=== PATIENT | female | born 1940 | race Caucasian/White ===

== ENCOUNTER 2018-01-28 14:29 | Observation (INO) ==
--- NOTE | 2018-01-28 14:46 | Emergency Department Report ---
Cardiac General HPI - General Chief Complaint: Arrhythmia/Palpitations Stated Complaint: racing heart,palpitation Time Seen by Provider: 01/28/18 14:46 Source: patient Mode of arrival: ambulatory Limitations: no limitations - History of Present Illness HPI narrative: Patient is a 77-year-old female, dialysis patient. Patient presents the ER for evaluation of rapid heart rate. Patient at dialysis yesterday developed a rapid heart rate, she says this is not uncommon for her, however it did not go away. Patient with a known history of atrial fibrillation not normally daily and atrial fibrillation. Patient does see Dr. Tsai for cardiology, today decided present to the ER for evaluation patient's heart rate irregularly irregular - Related Data Home Medications Medication Instructions Recorded Confirmed irbesartan 75 mg tablet 75 mg PO DAILY 90 Days #90 tab 10/19/17 02/17/18 Apixaban [Eliquis] 2.5 mg PO BID 01/28/18 02/17/18 Cholecalciferol (Vitamin D3) 1,000 unit PO DAILY 01/28/18 02/17/18 [Vitamin D3] Multivit/Iron/FA/K/Herb No.244 1 each PO DAILY 01/28/18 02/17/18 [Alive Women's Energy Mv Tablet] Sevelamer Carbonate [Renvela] 800 mg PO HS 01/28/18 02/17/18 Previous Rx's Medication Instructions Recorded Carvedilol [Coreg] 37.5 mg PO BIDWM #45 tab 01/29/18 Allergies Allergy/AdvReac Type Severity Reaction Status Date / Time iodine Allergy Unknown Verified 01/28/18 15:06 Review of Systems Constitutional: Reports: weakness. Denies: fever, chills Eyes: Denies: eye pain, eye discharge, vision change ENT: Denies: ear pain, throat pain, dental pain Cardiovascular: Reports: palpitations, dyspnea on exertion. Denies: chest pain Respiratory: Denies: cough, dyspnea, wheezes Gastrointestinal: Denies: abdominal pain, nausea, vomiting Genitourinary: Denies: dysuria, frequency Musculoskeletal: Denies: back pain Integumentary: Denies: erythema, lesions, pruritus Neurological: Reports: weakness. Denies: headache Endocrine: Reports: fatigue. Denies: heat or cold intolerance Hematological/Lymphatic: Denies: easy bleeding Allergic/Immunologic: Denies: facial swelling [facility] Medical History (Last Updated 10/19/17 @ 11:20 by Emily Rinaldi [facility]) Seasonal allergies (Chronic Medical) HTN (hypertension) (Chronic Medical) Aortic aneurysm (Chronic Medical) 2009 Surgical History: *Cyst removal. *Aortic repair - Social History Smoking status: Former smoker Substance use type: does not use Alcohol intake frequency: holidays/special occasions only Physical Exam - Limitations Limitations: no limitations - General General appearance: alert, in no apparent distress - Head Head exam: normocephalic, normal inspection - Eye Eye exam: Present: PERRL, EOMI - ENT ENT exam: Present: normal oropharynx, mucous membranes moist, TM's normal bilaterally - Neck Neck exam: Present: trachea midline. Absent: tenderness - Chest Chest inspection: Present: symmetric chest wall rise. Absent: tenderness - Respiratory Respiratory exam: Present: normal lung sounds bilaterally. Absent: respiratory distress, wheezes, stridor - Cardiovascular Cardiovascular exam: Present: tachycardia, irregular rhythm, normal heart sounds - Abdominal Exam Abdominal exam: Present: soft, normal bowel sounds. Absent: distention, tenderness - Back Exam Back exam: Present: full ROM. Absent: tenderness, CVA tenderness (R), CVA tenderness (L), muscle spasm - Skin Skin exam: Present: warm, dry - Neurological Exam Neurological exam: Present: alert, oriented X3 - Psychiatric Psychiatric exam: Present: normal affect, normal mood Course Vital Signs Temperature 97.4 F 01/28/18 14:42 Pulse Rate 124 H 01/28/18 14:42 Respiratory Rate 15 01/28/18 14:42 Pulse Oximetry 99 01/28/18 14:42 Temperature 98.0 F 01/29/18 04:15 Pulse Rate 71 01/29/18 12:16 Respiratory Rate 27 H 01/29/18 12:16 Blood Pressure 80/46 01/29/18 12:16 Pulse Oximetry 97 01/29/18 12:16 Cardiac General - MDM Narrative Medical decision making narrative: Discuss case with Vivian Awan from Dr. Leong's group, they will admit here she is aware patient is a dialysis patient - Medical Records Attestation: I reviewed the patient's medical records. - Lab Data Attestation: I reviewed the patient's lab results. Result diagrams: 01/28/18 15:01 01/28/18 15:01 Lab Results 01/28/18 01/28/18 01/28/18 Range/Units 15:01 15:01 15:01 WBC 3.8 L (4.5-11.0) T/MM3 RBC 4.16 (4.00-5.20) M/MM3 Hgb 12.8 (12-16) GM/DL Hct 40.3 (36-46) % MCV 96.9 (80-100) UM3 MCH 30.8 (26-34) UUG MCHC 31.8 (31-37) GM/DL RDW Std Deviation 56.6 H (36.9-50.2) FL Plt Count 112 L (130-400) T/MM3 MPV 10.6 (9.4-12.4) UM3 Immature Gran % (Auto) 0.0 (0.0-0.5) % Neut % (Auto) 51.4 (33-66) % Lymph % (Auto) 33.5 (23-45) % [place] % (Auto) 9.8 H (0-9.0) % Eos % (Auto) 3.2 (0-4) % Baso % (Auto) 2.1 H (0-2) % Neut # (Auto) 1.9 (1.8-7.7) T/MM3 Lymph # (Auto) 1.3 (1-4.8) T/MM3 Rosebud # (Auto) 0.4 (0-0.8) T/MM3 Eos # (Auto) 0.1 (0-0.5) T/MM3 Baso # (Auto) 0.1 (0-0.2) T/MM3 Abs Immat Gran (auto) 0.00 (0.00-0.03) T/MM3 INR 1.13 (0.92-1.18) Turbidity < 20 (0-20) Sodium 142 (136-146) MEQ/L Potassium 3.6 (3.6-5) MEQ/L Chloride 98 (98-107) MEQ/L Carbon Dioxide 30 (22-30) MEQ/L Anion Gap 14 (5-15) meq/L BUN 11.0 (7-17) MG/DL Creatinine 3.8 H (0.7-1.2) mg/dL GFR Calculation 12 BUN/Creatinine Ratio 3 L (6-26) RATIO Glucose 123 H (65-110) MG/DL Calculated Osmolality 273 (261-280) MOSM/KG Calcium 9.6 (8.4-10.2) MG/DL Magnesium 2.1 (1.6-2.3) MG/DL Total Bilirubin 0.80 (0.20-1.30) MG/DL Icterus Index < 2 (0-7) AST 20 (14-36) U/L ALT 9 (1-35) U/L Alkaline Phosphatase 71 (38-126) U/L Troponin I 0.014 (0-0.12) ng/ml Total Protein 7.7 (6.3-8.2) g/dL Albumin 4.8 (3.5-5.0) g/dL Globulin 2.9 (2.4-3.6) G/DL Albumin/Globulin Ratio 1.7 (1.1-2.2) RATIO TSH 3.47 (0.47-4.68) mIU/L Specimen Hemolysis < 15 (0-25) - Radiology Data Attestation: I reviewed the patient's radiology results. Chest x-ray: No acute cardiopulmonary findings - EKG Data EKG #1 EKG attestation: Yes: I reviewed and interpreted this EKG. Rate: tachycardia Rhythm: A.Fib [place]/QRS: normal Interpretation: no acute changes Disposition Clinical Impression: Atrial fibrillation with RVR Disposition: To [facility] Acute Care Condition: Stable - Seen By: physician
[2018-01-28] MEDS ORDERED: SALINE FLUSH 10ml SYRINGE IVF PRN (14:53)
--- OUTSIDE RECORDS SUMMARY | 2018-01-28 14:56 | External Medical Summary | Continuity of Care Document ---
:1940 Author Organization [facility] Allergies Active Description Code Type Severity Reaction Onset Reported/ Identified Relationship Clinical to Patient Status Yes Iodinated Iodin Drug Mild RASH 08/12/2014 Contrast ated Aller Media - IV Contr gy Dye ast Media - IV Dye Yes Iodinated Iodin Drug Mild RASH 08/12/2014 Contrast- ated Aller Oral and IV Contr gy Dye ast- Oral and IV Dye Yes iodine Aller Unknown N/A 10/19/2017 gy Medications Medication Packaging Start Date Stop Date Route Dosage Sig 05/16/2011 PO 25 mg Hydrochlorothiazide DAILY Simvastatin 05/16/2011 PO 20 mg HS Niaspan 05/16/2011 PO 500 mg HS Amlodipine 05/16/2011 PO 10 mg Besylate DAILY Coreg 05/16/2011 PO 12.5 mg BID Cozaar 05/16/2011 PO 100 mg DAILY Lopressor 10/19/2017 PO 25 mg BID Irbesartan 10/19/2017 PO 75 mg DAILY Problems Date Dx Coded Attending Type Code Diagnosis Diagnosed By 10/19/2017 Irene Mon Z48.02 Encounter for Irene Mon [employer] removal of [employer] sutures Procedures Code Description Performed By Performed On DIALYSIS Leydi DE PAZ, 08/12/2014 39.27 ARTERIOVENOSTOM [place] <section xmlns="urn:hl7-org:v3" xmlns:xsi="http://www.w3.org/ 2001/XMLSchema-instance"> <templateId root=" 2.16.840.1.651372.10.20.22.2.3" /> <templateId root=" 2.16.840.1.030018.10.20.22.2.3.1" /> <code codeSystemName=" LOINC" codeSystem="2.16.840.1.367833.6.1" code="69257-4&quot ; displayName="Results" /> <title>Results</title> &lt ;text> <table> <thead> <tr> <th& gt;Test</th> <th>Result</th> <th>Range </th> </tr> </thead> <tbody> &lt ;tr> <th colspan="10">CBC - 10/02/17 08:31</th&gt ; </tr> <tr> <td>MEAN CELL HGB</td> <td>31.8 pg</td> <td>27.0-33.0</td> </tr> <tr> <td>MEAN CELL HGB CONCENTRATION</td> <td>32.2 g/dL</td> <td >32.0-37.0</td> </tr> <tr> <td&gt ;MEAN CELL VOLUME</td> <td>98.7 fl</td> < td>80.0-100.0</td> </tr> <tr> <td >MEAN PLATELET VOLUME</td> <td>10.4 fl</td> <td>8.5-10.9</td> </tr> <tr> <td>RED BLOOD CELL</td> <td>3.05 m/cumm</td> <td>4.00-6.00</td> </tr> <tr> &lt ;td>RED CELL DISTRIBUTION WIDTH</td> <td>15.2 %& lt;/td> <td>11.0-15.6</td> </tr> &lt ;tr> <td>WHITE BLOOD CELL</td> <td>3.2 k/cumm< /td> <td>5.0-10.0</td> </tr> <tr& gt; <td>HEMOGLOBIN</td> <td>9.7 gm/dL</td> <td>12.0-16.0</td> </tr> <tr> <td>HEMATOCRIT</td> <td>30.1 %</td> <td>37.0-47.0</td> </tr> <tr> <td>NRBC %</td> <td>0.0 /100 WBC</td> <td>0.0-0.0</td> </tr> <tr> <td>PLATELET COUNT</td> <td>122 k/cumm</td> <td>150-400</td> </tr> <tr> &lt ;td>IMMATURE PLATELET FRACTION</td> <td>2.5 %&lt ;/td> <td>1.1-6.1</td> </tr> <tr> <th colspan="10">METABOLIC PANEL, BASIC - 10/02/17 08:31& lt;/th> </tr> <tr> <td>POTASSIUM</td& gt; <td>4.0 mmol/L</td> <td>3.5-5.3</td& gt; </tr> <tr> <td>EST GFR (MDRD)</ td> <td>< 10 mL/min</td> <td>> 59</td> </tr> <tr> <td>ANION GAP& lt;/td> <td>11 mmol/L</td> <td>5-15</ td> </tr> <tr> <td>EST CrCl (CG)< /td> <td>< 10 mL/min</td> <td>&amp ;gt; 59</td> </tr> <tr> <td> GLUCOSE</td> <td>81 mg/dL</td> <td>70- 99</td> </tr> <tr> <td>CALCIUM</td> <td>9.1 mg/dL</td> <td>8.5-10.1</td> </tr> <tr> <td>BLOOD UREA NITROGEN< /td> <td>16 mg/dL</td> <td>7-20</td> </tr> <tr> <td>CREATININE</td> <td>5.0 mg/dL</td> <td>0.6-1.0</td> </tr> <tr> <td>SODIUM</td> <td> 137 mmol/L</td> <td>135-148</td> </tr> <tr> <td>CHLORIDE</td> <td>100 mmol/L</td> <td>98-110</td> </tr> <tr> <td>CARBON DIOXIDE</td> <td>26 mmol/L</td> <td>21-32</td> </tr> <tr> <th colspan="10">MRSA SURVEILLANCE SCREEN - 10/02/17 08:49</th> </tr> <tr> <td& gt;Microbiology</td> <td> </td> <td /> & lt;/tr> </tbody> </table> </text> <entry> <organizer moodCode="EVN" classCode="BATTERY"> <templateId root="2.16.840.1.089779.10.20.22.4.1" /> < id nullFlavor="NA" /> <code codeSystem="local" code="CBC" displayName="CBC" /> <statusCode code= "completed" /> <component> <observation moodCode=& quot;EVN" classCode="OBS"> <templateId root=" 2.16.840.1.107341.10.20.22.4.2" /> <id nullFlavor="NA& quot; /> <code codeSystem="local" code="MCH" displayName="MEAN CELL HGB" /> <statusCode code=" completed" /> <effectiveTime value="763510675432" /> <value unit="pg" xsi:type="PQ" value=&quot ;31.8" /> <referenceRange> < observationRange><text>27.0-33.0</text> </ observationRange> </referenceRange> </observation&gt ; </component> <component> <observation moodCode ="EVN" classCode="OBS"> <templateId root=& quot;2.16.840.1.778557.10.20.22.4.2" /> <id nullFlavor=&quot ;NA" /> <code codeSystem="local" code="MCHC& quot; displayName="MEAN CELL HGB CONCENTRATION"/> < statusCode code="completed" /> <effectiveTime value=& quot;695337953682" /> <value unit="g/dL" xsi:type= "PQ" value="32.2" /> <referenceRange> <observationRange> <text>32.0-37.0</text&gt ; </observationRange> </referenceRange> & lt;/observation> </component> <component> < observationmoodCode="EVN" classCode="OBS"> < templateId root="2.16.840.1.970528.10.20.22.4.2" /> < id nullFlavor="NA" /> <code codeSystem="local&quot ; code="MCV" displayName="MEAN CELL VOLUME" /> < statusCode code="completed" /> <effectiveTime value=& quot;464074188141" /> <value unit="fl" xsi:type=& quot;PQ" value="98.7" /> <referenceRange> <observationRange> <text>80.0-100.0</text&gt ; </observationRange> </referenceRange> & lt;/observation> </component> <component> < observation moodCode="EVN" classCode="OBS"> < templateId root="2.16.840.1.132936.10.20.22.4.2" /> < id nullFlavor="NA" /> <code codeSystem="local&quot ; code="MPVT" displayName="MEAN PLATELET VOLUME" /> <statusCode code="completed" /> <effectiveTime value="008935756352" /> <value unit="fl" xsi: type="PQ" value="10.4" /> <referenceRange> <observationRange> <text>8.5-10.9</text> </observationRange> </referenceRange> &lt ;/observation> </component> <component> < observation moodCode="EVN"classCode="OBS"> < templateId root="2.16.840.1.528205.10.20.22.4.2" /> < id nullFlavor="NA" /> <code codeSystem="local&quot ; code="RBC" displayName="RED BLOOD CELL" /> &lt ;statusCode code="completed" /> <effectiveTime value=& quot;293263501406" /> <value unit="m/cumm" xsi: type="PQ" value="3.05" /> < interpretationCode codeSystem="local" code="*" /> <referenceRange> <observationRange> <text >4.00-6.00</text> </observationRange> </ referenceRange> </observation> </component> < component> <observation moodCode="EVN" classCode=" OBS"> <templateId root="2.16.840.1.854120.10.20.22.4.2& quot; /> <id nullFlavor="NA" /> <code codeSystem="local" code="RDW" displayName="RED CELL DISTRIBUTION WIDTH" /> <statusCode code="completed&quot ; /> <effectiveTime value="357231393818" /> <value unit="%" xsi:type="PQ" value="15.2& quot; /> <referenceRange> <observationRange> <text>11.0-15.6</text> </ observationRange> </referenceRange> </observation&gt ; </component> <component> <observation moodCode ="EVN" classCode="OBS"> <templateId root=& quot;2.16.840.1.721843.10.20.22.4.2" /> <id nullFlavor=&quot ;NA" /> <code codeSystem="local" code="WBC& quot; displayName="WHITE BLOOD CELL" /> <statusCode code="completed" /> <effectiveTime value=" 655950094823" /> <value unit="k/cumm" xsi:type=& quot;PQ" value="3.2" /> <interpretationCode codeSystem="local" code="*" /> < referenceRange> <observationRange> <text> 5.0-10.0</text> </observationRange> </referenceRange& gt; </observation> </component> <component> <observation moodCode="EVN" classCode="OBS"> <templateId root="2.16.840.1.448947.10.20.22.4.2" /> <id nullFlavor="NA" /> <code codeSystem=" local" code="HGBT" displayName="HEMOGLOBIN" /> <statusCode code="completed" /> <effectiveTime value="161177373582" /> <value unit="gm/dL" xsi:type="PQ" value="9.7" /> < interpretationCode codeSystem="local" code="*" /> <referenceRange> <observationRange> < text>12.0-16.0</text> </observationRange> &lt ;/referenceRange></observation> </component> < component> <observation moodCode="EVN" classCode=" OBS"> <templateId root="2.16.840.1.778155.10.20.22.4.2& quot; /> <id nullFlavor="NA" /> <code codeSystem="local" code="HCTT" displayName="HEMATOCRIT& quot; /> <statusCode code="completed" /> & lt;effectiveTime value="426989448416" /> <value unit=&quot ;%" xsi:type="PQ" value="30.1" /> < interpretationCode codeSystem="local" code="*" /> <referenceRange> <observationRange> < text>37.0-47.0</text> </observationRange> </ referenceRange> </observation> </component> < component> <observation moodCode="EVN" classCode=" OBS"> <templateId root="2.16.840.1.272581.10.20.22.4.2& quot; /> <id nullFlavor="NA" /> <code codeSystem="local" code="NRBC%" displayName=" NRBC %" /> <statusCode code="completed" /& gt; <effectiveTime value="335690674556" /> &lt ;value unit="/100WBC" xsi:type="PQ" value="0.0" /& gt; <referenceRange> <observationRange> <text>0.0-0.0</text> </observationRange> </ referenceRange> </observation> </component> < component> <observation moodCode="EVN" classCode=" OBS"> <templateId root="2.16.840.1.303720.10.20.22.4.2& quot; /> <id nullFlavor="NA" /> <code codeSystem="local" code="PLTT" displayName="PLATELET COUNT" /> <statusCode code="completed"/> <effectiveTime value="219711862093" /> <value unit="k/cumm" xsi:type="PQ" value="122" /> <interpretationCode codeSystem="local" code="*" /& gt; <referenceRange> <observationRange> <text>150-400</text> </observationRange> </referenceRange> </observation> </component> <component> <observation moodCode="EVN" classCode ="OBS"> <templateId root=" 2.16.840.1.120874.10.20.22.4.2" /> <id nullFlavor="NA& quot; /> <code codeSystem="local" code="IPFT&quot ; displayName="IMMATURE PLATELET FRACTION" /> < statusCode code="completed" /> <effectiveTime value=& quot;920931761479" /> <value unit="%" xsi: type="PQ" value="2.5" /> <referenceRange> <observationRange> <text>1.1-6.1</text& gt; </observationRange> </referenceRange> & lt;/observation> </component> </organizer> </entry&gt ; <entry> <organizer moodCode="EVN" classCode=" BATTERY"> <templateId root="2.16.840.1.467565.10.20.22.4.1& quot; /> <id nullFlavor="NA" /> <code codeSystem ="local" code="METAB" displayName="METABOLIC PANEL, BASIC" /> <statusCode code="completed" /> < component> <observation moodCode="EVN" classCode=" OBS"> <templateId root="2.16.840.1.111123.10..22.4.2&quot ; /> <id nullFlavor="NA" /> <code codeSystem="local" code="K" displayName="POTASSIUM&quot ; /> <statusCode code="completed" /> < effectiveTime value="618417193484" /> <value unit=&quot ;mmol/L" xsi:type="PQ" value="4.0" /> < referenceRange> <observationRange> <text> 3.5-5.3</text> </observationRange> </ referenceRange> </observation> </component> < component> <observation moodCode="EVN" classCode="OBS& quot;> <templateId root="2.16.840.1.139009.10..22.4.2&quot ; /> <id nullFlavor="NA" /> <code codeSystem="local" code="eGFR" displayName="EST GFR ( MDRD)" /> <statusCode code="completed" /> <effectiveTime value="615333745314" /> <value unit="mL/min" xsi:type="PQ" value="< 10" /& gt; <interpretationCode codeSystem="local" code="*& quot; /> <referenceRange> <observationRange> <text>> 59</text> </ observationRange> </referenceRange> </observation&gt ; </component> <component> <observation moodCode ="EVN" classCode="OBS"> <templateId root=& quot;2.16.840.1.359757.10.20.22.4.2" /> <id nullFlavor=&quot ;NA" /> <code codeSystem="local" code="GAP& quot; displayName="ANION GAP" /> <statusCode code=&quot ;completed" /> <effectiveTime value="881977546701&quot ; /> <value unit="mmol/L" xsi:type="PQ" value ="11" /> <referenceRange> < observationRange> <text>5-15</text> </ observationRange> </referenceRange> </observation&gt ; </component> <component> <observation moodCode ="EVN" classCode="OBS"> <templateId root=& quot;2.16.840.1.155117.10.20.22.4.2" /> <id nullFlavor=&quot ;NA" /> <code codeSystem="local" code="eCrCl& quot; displayName="EST CrCl (CG)" /> <statusCode code=& quot;completed" /> <effectiveTime value="968666335614& quot; /> <value unit="mL/min" xsi:type="PQ" value="< 10" /><interpretationCode codeSystem="local " code="*" /> <referenceRange> < observationRange> <text>> 59</text> </ observationRange> </referenceRange> </observation&gt ; </component> <component> <observation moodCode ="EVN" classCode="OBS"> <templateId root=& quot;2.16.840.1.841720.10.20.22.4.2" /><id nullFlavor="NA" /> <code codeSystem="local" code="GLU" displayName="GLUCOSE" /> <statusCode code=" completed" /> <effectiveTime value="176715272794" / > <value unit="mg/dL" xsi:type="PQ" value=& quot;81" /> <referenceRange> < observationRange> <text>70-99</text> < /observationRange> </referenceRange> </observation& gt; </component> <component> <observation moodCode="EVN" classCode="OBS"> <templateId root="2.16.840.1.601351.10.20.22.4.2" /> <id nullFlavor ="NA" /> <code codeSystem="local" code=" CA" displayName="CALCIUM" /> <statusCode code=& quot;completed" /> <effectiveTime value="550806030291& quot; /> <value unit="mg/dL" xsi:type="PQ" value="9.1" /> <referenceRange> < observationRange> <text>8.5-10.1</text> </ observationRange> </referenceRange> </observation&gt ; </component> <component> <observation moodCode ="EVN" classCode="OBS"> <templateId root=& quot;2.16.840.1.786758.10.20.22.4.2" /> <id nullFlavor=&quot ;NA" /> <code codeSystem="local" code="BUN& quot; displayName="BLOOD UREA NITROGEN" /> <statusCode code="completed" /> <effectiveTime value=" 158436504653" /> <value unit="mg/dL" xsi:type=& quot;PQ" value="16" /> <referenceRange> <observationRange> <text>7-20</text> </observationRange> </referenceRange> </ observation> </component> <component> < observation moodCode="EVN" classCode="OBS"> < templateId root="2.16.840.1.305491.10.20.22.4.2" /> < id nullFlavor="NA" /> <code codeSystem="local&quot ; code="CREAT" displayName="CREATININE" /> < statusCode code="completed" /> <effectiveTime value=& quot;922036642242" /> <value unit="mg/dL" xsi:type ="PQ" value="5.0" /> <interpretationCode codeSystem ="local" code="*" /> <referenceRange> <observationRange> <text>0.6-1.0</text> </observationRange> </referenceRange> </ observation> </component> <component> < observation moodCode="EVN" classCode="OBS"> < templateId root="2.16.840.1.077322.10.20.22.4.2" /><id nullFlavor="NA" /> <code codeSystem="local" code="NA" displayName="SODIUM" /> < statusCode code="completed" /> <effectiveTime value=" 534730555506" /> <value unit="mmol/L" xsi:type=& quot;PQ" value="137" /> <referenceRange> <observationRange> <text>135-148</text> </observationRange> </referenceRange> </ observation> </component> <component> < observation moodCode="EVN" classCode="OBS"> < templateId root="2.16.840.1.021813.10.20.22.4.2" /> < id nullFlavor="NA" /> <code codeSystem="local&quot ; code="CL" displayName="CHLORIDE" /> < statusCode code="completed" /> <effectiveTime value=& quot;332437520649" /> <value unit="mmol/L" xsi: type="PQ" value="100" /> <referenceRange> <observationRange> <text>98-110</text&gt ; </observationRange> </referenceRange> & lt;/observation> </component> <component> < observation moodCode="EVN" classCode="OBS"> < templateId root="2.16.840.1.923797.10.20.22.4.2" /> < id nullFlavor="NA" /> <code codeSystem="local&quot ; code="CO2" displayName="CARBON DIOXIDE" /> &lt ;statusCode code="completed" /> <effectiveTime value=& quot;141091074179" /> <value unit="mmol/L" xsi: type="PQ" value="26" /> <referenceRange> <observationRange> <text>21-32</text> </observationRange> </referenceRange> </ observation> </component> </organizer> </entry> & lt;entry> <organizer moodCode="EVN" classCode="BATTERY& quot;> <templateId root="2.16.840.1.043159.10.20.22.4.1" /& gt; <id nullFlavor="NA" /> <code codeSystem=" local" code="MRSAS" displayName="MRSA SURVEILLANCE SCREEN& quot; /> <statusCode code="completed" /> < component> <observation moodCode="EVN" classCode=" OBS"> <templateId root="2.16.840.1.364500.10.20.22.4.2& quot; /> <id nullFlavor="NA" /> <code codeSystem="local" code="MB" displayName="Microbiology& quot; /> <statusCode code="completed" /> < effectiveTime value="672125120661" /> <value xsi:type=& quot;ST" value="<pre><b>MRSA SURVEILLANCE SCREEN</b&gt ; See BelowMRSA SURVEILLANCE SCREEN(F) Kwesi Date/Time: 10/02/2017 08:49 Danni Date/Time: 10/03/2017 07:33SOURCE: ANTERIOR NARESSPEC DESC: [facility] [place] [address]</pre>" /> < referenceRange> <observationRange> <text /& gt; </observationRange> </referenceRange> </observation> </component> </organizer> </entry ></section> Encounters ACCT Visit Discharge Status Pt. Type Provider Facility Loc./Unit Complaint No. Date/Time W0004 10/02/2017 10/02/2017 DIS Outpatient Leydi TAYLORA [id number] 07:50:00 11:30:00 , [facility] W0004 08/12/2014 08/12/2014 DIS Outpatient Leydi HuberOPRA [id number] 09:03:00 14:40:00 , Medical 43 [facility] V0000 10/19/2017 10/19/2017 DIS Outpatient Yaa, Mauro Staple [id number] 11:04:00 11:39:00 [facility] Removal [address] [employer] [id number] 01/28/2018 Document [id number] 14:31:00 Registration 64
[2018-01-28] MEDS ORDERED: DiltiaZEM 25 MG/5 ML INJECTION IVP ONE (15:24)
[2018-01-28 15:34] VITALS: BMI 24.7
[2018-01-28] MEDS ORDERED: DiltiaZEM Drip 125 MG in NS 125 ML IV SCH (15:45)
[2018-01-28] MEDS ORDERED: FUROSEMIDE 20 MG/2 ML INJECTION IVP ONE (15:48)
--- NOTE | 2018-01-28 16:18 | XRay Report ---
Indication: afib PROCEDURE: XR chest 1V: Encounter: Initial Comparison: Chest x-ray dated February 24, [address] angiogram of the aorta dated October 24, 2015 Findings: Lungs are mildly hyperinflated with findings of emphysema. No lobar pneumonia, pleural effusion or pneumothorax. Cardiac silhouette is mildly enlarged, but unchanged. Aneurysmal dilatation of the descending thoracic aorta is noted and is better evaluated on the prior CT angiogram. Pulmonary vascularity is normal. 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 Impression: No focal pneumonia or congestive failure. .
[2018-01-28 20:33] VITALS: TEMP 98
[2018-01-28] MEDS: APIXABAN 2.5 MG TABLET PO SCH (20:46)
[2018-01-28] MEDS ORDERED: SEVELAMER CARBONATE 800 MG PO SCH (21:00)
[2018-01-28] MEDS ORDERED: CARVEDILOL 25 MG TABLET PO SCH (21:00)
[2018-01-29] MEDS ORDERED: CARVEDILOL 25 MG TABLET PO SCH ×2 (08:00→17:30)
[2018-01-29] MEDS ORDERED: SALINE FLUSH 10ml SYRINGE ONE (08:48)
[2018-01-29] MEDS ORDERED: IRBESARTAN 150 MG TABLET PO SCH (09:00)
[2018-01-29] MEDS ORDERED: MULTI-VITAMIN + MINERAL TABLET PO SCH (09:00)
--- NOTE | 2018-01-29 10:07 | Cardiology History & Physical ---
History of Present Illness Chief complaint: palpitations HPI: Haley is a 77 year old female who is known to Dr. Tsai's practice with a history of A Fib, HTN, nonrheumatic tricuspid insufficiency, ruptured and repaired abdominal aortic aneurysm, HLD, CKD on dialysis, and nicotine dependence who was at dialysis yesterday and reported feeling palpitations and her HR was noted to be in the upper 140s and [place] [facility] [place] for possible ARLINE/ DCCV. Review of Systems - Constitutional Constitutional: Absent: chills, fatigue, fever(s) - EENMT Eyes: Absent: change in vision Balance: Absent: vertigo Mouth/Throat: Absent: sore throat - Cardiovascular Cardiovascular: Present: palpitations, dyspnea on exertion, edema, heart murmur. Absent: chest pain, syncope, orthopnea Rhythm: Present: abnormal rhythm Vascular: Present: pedal edema - Respiratory Respiratory: Present: cough, dyspnea on exertion - Gastrointestinal Gastrointestinal: Absent: abdominal pain, diarrhea, nausea, vomiting - Genitourinary Genitourinary: Absent: dysuria - Integumentary/Breasts Integumentary: Absent: rash - Neurological Neurological: Absent: dizziness - Endocrine Endocrine: Present: palpitations PFSH Patient Stated Medical History Cataracts Yes Cardiac Arrhythmia Yes Hypertension Yes Other Cardiology Yes: aortic aneurysm Post Menopausal Yes Clinic Medical History (Last Updated 10/19/17 @ 11:20 by Emily Rinaldi Do) Seasonal allergies (Chronic Medical) HTN (hypertension) (Chronic Medical) Aortic aneurysm (Chronic Medical) 2009 Surgical History: *Cyst removal. *Aortic aneurysm repair Family History: Mother - CAD - Social History Smoking status: Former smoker Substance use type: does not use Alcohol intake frequency: holidays/special occasions only Housing: house Household members: none Current occupational status: disabled Medications Home Medications Medication Instructions Recorded Confirmed Type irbesartan 75 mg tablet 75 mg PO DAILY 90 Days #90 tab 10/19/17 01/28/18 History Apixaban [Eliquis] 2.5 mg PO BID 01/28/18 01/28/18 History Cholecalciferol (Vitamin D3) 1,000 unit PO DAILY 01/28/18 01/28/18 History [Vitamin D3] Multivit/Iron/FA/K/Herb No.244 1 each PO DAILY 01/28/18 01/28/18 History [Alive Women's Energy Mv Tablet] Sevelamer Carbonate [Renvela] 800 mg PO HS 01/28/18 01/28/18 History Carvedilol [Coreg] 37.5 mg PO BIDWM #45 tab 01/29/18 Rx Allergies Allergy/AdvReac Type Severity Reaction Status Date / Time iodine Allergy Unknown Verified 01/28/18 15:06 Exam Vital signs: Temperature 98.0 F 01/29/18 04:15 Pulse Rate 77 01/29/18 05:45 Respiratory Rate 17 01/29/18 05:45 Blood Pressure 162/77 H 01/29/18 05:45 Pulse Oximetry 95 01/29/18 05:45 - Constitutional no acute distress, well nourished, cooperative - Routine HEENT Exam Head: Present: normocephalic ENT: Present: mucous membranes moist - Routine Neck Exam Absent: JVD, carotid bruit - Routine Chest/Breast/Axilla Exam Chest wall: Absent: tenderness - Routine Respiratory Exam Present: CTA bilaterally, diminished air movement (bases). Absent: dyspnea, rales, wheezes - Routine Cardiovascular Exam Present: murmur (II/), irregular rhythm - Routine Abdominal Exam Present: soft, non tender - Routine Extremities Exam Present: edema - Routine Skin Exam Present: intact, dry, warm - Routine Neurological Exam Present: alert, oriented X3 - Routine Psychiatric Exam Present: normal affect, normal thought process Results 01/28/18 15:01 01/28/18 15:01 Cardiac Enzymes 01/28/18 Range/Units 15:01 AST 20 (14-36) U/L Troponin I 0.014 (0-0.12) ng/ml CBC 01/28/18 Range/Units 15:01 WBC 3.8 L (4.5-11.0) T/MM3 RBC 4.16 (4.00-5.20) M/MM3 Hgb 12.8 (12-16) GM/DL Hct 40.3 (36-46) % Plt Count 112 L (130-400) T/MM3 Neut # (Auto) 1.9 (1.8-7.7) T/MM3 Lymph # (Auto) 1.3 (1-4.8) T/MM3 [place] # (Auto) 0.4 (0-0.8) T/MM3 Eos # (Auto) 0.1 (0-0.5) T/MM3 Baso # (Auto) 0.1 (0-0.2) T/MM3 Comprehensive Metabolic Panel 01/28/18 Range/Units 15:01 Sodium 142 (136-146) MEQ/L Potassium 3.6 (3.6-5) MEQ/L Chloride 98 (98-107) MEQ/L Carbon Dioxide 30 (22-30) MEQ/L BUN 11.0 (7-17) MG/DL Creatinine 3.8 H (0.7-1.2) mg/dL Glucose 123 H (65-110) MG/DL Calcium 9.6 (8.4-10.2) MG/DL AST 20 (14-36) U/L ALT 9 (1-35) U/L Alkaline Phosphatase 71 (38-126) U/L Total Protein 7.7 (6.3-8.2) g/dL Albumin 4.8 (3.5-5.0) g/dL Intake and Output 01/28/18 01/29/18 01/29/18 22:59 06:59 14:59 Intake Total 360 / 360 158.833 / 158.833 Balance 360 / 360 158.833 / 158.833 Intake: IV 38.833 / 38.833 DiltiaZEM Drip 125 mg In Ns 125 38.833 / 38.833 ml @ 5 mls/hr IV .Q24H [facility] Rx# :[id number] Oral 360 / 360 120 / 120 Other: # Voids 1 Weight 143 lb 15.39 oz - Imaging and Cardiology Imaging & Cardiology Narrative: = = = = = = = = = = = = = = = = = = = = = = = = = = = = = = = = = = = = = = = = = = = = = = = = = = = = = = = = = = = Date of Exam: 01/28/18 Ordering Provider: Vivian Awan APRN Type of Exam(s): XR chest 1V Reason for Exam(s): afib Indication: afib PROCEDURE: XR chest 1V: Encounter: Initial Comparison: Chest x-ray dated February 24, [address] angiogram of the aorta dated October 24, 2015 Findings: Lungs are mildly hyperinflated with findings of emphysema. No lobar pneumonia, pleural effusion or pneumothorax. Cardiac silhouette is mildly enlarged, but unchanged. Aneurysmal dilatation of the descending thoracic aorta is noted and is better evaluated on the prior CT angiogram. Pulmonary vascularity is normal. 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 Impression: No focal pneumonia or congestive failure. . 01/29/18 10:15 01/30/18 09:31 Date of Exam: 01/28/18 Type of Exam(s): US echo doppler complete DATE OF PROCEDURE 01/28/2018 PROCEDURE PERFORMED 2D echocardiography, M-mode assessment, full color spectral Doppler assessment. FINDINGS 1. LEFT VENTRICLE. Left ventricle appears normal in size. There is mild concentric left ventricular hypertrophy noted. Normal left ventricular systolic function noted. Estimated left ventricular ejection fraction is 50-55% . Due to presence of atrial fibrillation, study is not technically sufficient to allow accurate assessment of diastolic function. 2. RIGHT VENTRICLE. Right ventricle appears normal in size. Normal right ventricular wall thickness noted. Normal right ventricular systolic function noted. 3. RIGHT ATRIUM. Right atrium is mildly enlarged. 4. LEFT ATRIUM. Left atrium is moderately enlarged. 5. INTERATRIAL SEPTUM. Interatrial septum appears intact. No shunt by color flow noted. 6. MITRAL VALVE. There is moderate mitral annular calcification noted predominantly at the posterior annulus. There is no significant mitral stenosis noted. There is moderate central mitral regurgitation noted. 7. AORTIC VALVE. Aortic valve sclerosis is noted. There is moderate calcification of all three leaflets noted. No significant aortic regurgitation noted. No significant aortic stenosis noted. 8. TRICUSPID VALVE. Tricuspid valve appears normal in structure. There is moderate tricuspid regurgitation noted. 9. PULMONIC VALVE. Pulmonic valve poorly visualized on this study. Trivial pulmonic regurgitation noted. 10. EXTRACARDIAC. There is a trivial pericardial effusion noted without any hemodynamic compromise. 11. INFERIOR VENA CAVA. Inferior vena cava is dilated with poor respirophasic variations. 12. PULMONARY ARTERY. Estimated pulmonary artery systolic pressure is 50-55 mmHg. CONCLUSIONS 1. Normal left ventricular systolic function, estimated left ventricular ejection fraction is 55-60%. 2. Normal RV systolic function. 3. Moderate central mitral regurgitation noted. 4. Moderate tricuspid regurgitation noted. 5. Dilated IVC with poor respirophasic variation. 6. Estimated pulmonary artery systolic pressure is 50-55 mmHg. EKG interpretations - EKG EKG shows: atrial fibrillation (HR 120) - [place], pacemaker, normal Myocardial infarction: inferior W[place] (old age indeterminate) Hospital Course This is a general summary of the patient's hospital course. For more details refer to the complete medical record. Time spent with patient: 25 - 35 minutes Resuscitation Status: Full Code Assessment and Plan - Assessment and Plan (1) Atrial fibrillation with RVR Status: Acute New onset 01/15/18, started on Eliquis 2.5mg BID - Rate control with Cardizem bolus and drip. - Cardizem stopped at 0600, Rate controlled on Coreg - Patient does not want to have ARLINE/ DCCV today - Discharge to home with return on 02/17 for planned DCCV once she has been on anticoagulation longer - Followed by AAT with Flecainide - MAG and TSH WNL (2) CKD (chronic kidney disease) requiring chronic dialysis Status: Chronic Hemodialysis Fri-Fri-Fri, started 3 years ago (3) HTN (hypertension) Status: Chronic this condition is stable (4) Non-rheumatic tricuspid valve insufficiency Status: Chronic routine monitoring (5) Mixed hyperlipidemia Status: Chronic (6) Abdominal aortic aneurysm, ruptured Status: Chronic 2010 dissection with repair (7) Nicotine dependence, cigarettes, in remission Status: Chronic she remains abstinent from tobacco use
[2018-01-29] MEDS ORDERED: CARVEDILOL 12.5 MG TABLET PO ONE (10:15)
[2018-01-29] MEDS: APIXABAN 2.5 MG TABLET PO SCH (10:17)
--- NOTE | 2018-01-29 10:44 | Discharge Summary ---
Discharge Information Date of admission: 01/28/18 15:09 Anticipated date of discharge: 01/29/18 Attending Physician: Omar De La Cruz MD Primary care physician: Veronica Sneed MD Consults: 01/29/18 05:28 Case Management Consult [Case Management Consult] [CONS] Routine Reason For Exam: overnight oximetry - Discharge Diagnosis (1) Atrial fibrillation with RVR Status: Acute (2) CKD (chronic kidney disease) requiring chronic dialysis Status: Chronic (3) HTN (hypertension) Status: Chronic (4) Non-rheumatic tricuspid valve insufficiency Status: Chronic (5) Mixed hyperlipidemia Status: Chronic (6) Abdominal aortic aneurysm, ruptured Status: Chronic (7) Nicotine dependence, cigarettes, in remission Status: Chronic Atrial fibrillation - Laboratory Labs: 01/28/18 15:01 01/28/18 15:01 History of Present Illness HPI: Haley is a 77 year old female who is known to Dr. Tsai's practice with a history of A Fib, HTN, nonrheumatic tricuspid insufficiency, ruptured and repaired abdominal aortic aneurysm, HLD, CKD on dialysis, and nicotine dependence who was at dialysis yesterday and reported feeling palpitations and her HR was noted to be in the upper 140s and [place] [facility] [place] for possible [place]RLINE/ DCCV. Hospital Course This is a general summary of the patient's hospital course. For more details refer to the complete medical record. Hospital course: Atrial fibrillation with RVR Current visit: Yes Status: Acute - New onset 01/15/18, started on Eliquis 2.5mg BID - Rate control with Cardizem bolus and drip. - Cardizem stopped at 0600, Rate controlled on Coreg - Patient does not want to have ARLINE/ DCCV today - Discharge to home with return on 02/17 for planned DCCV once she has been on anticoagulation longer - Followed by AAT with Flecainide - MAG and TSH WNL CKD (chronic kidney disease) requiring chronic dialysis Current visit: Yes Status: Chronic - Hemodialysis Fri-Fri-Fri, started 3 years ago HTN (hypertension) Current visit: No Status: Chronic - this condition is stable Non-rheumatic tricuspid valve insufficiency Current visit: Yes Status: Chronic - routine monitoring Mixed hyperlipidemia Current visit: Yes Status: Chronic Abdominal aortic aneurysm, ruptured Current visit: Yes Status: Chronic - 2010 dissection with repair Nicotine dependence, cigarettes, in remission Current visit: Yes Status: Chronic - she remains abstinent from tobacco use Time spent with patient: 25 - 35 minutes Resuscitation Status: Full Code Exam Vital signs: Temperature 98.0 F 01/29/18 04:15 Pulse Rate 75 01/29/18 08:00 Respiratory Rate 17 01/29/18 05:45 Blood Pressure 162/77 H 01/29/18 05:45 Pulse Oximetry 95 01/29/18 05:45 - Constitutional no acute distress, well nourished, cooperative - Routine HEENT Exam Head: Present: normocephalic ENT: Present: mucous membranes moist - Routine Neck Exam Absent: JVD, carotid bruit - Routine Respiratory Exam Present: CTA bilaterally. Absent: dyspnea, rales, crackles - Routine Cardiovascular Exam Present: murmur (II/), irregular rhythm - Routine Abdominal Exam Present: soft, non tender - Routine Extremities Exam Present: edema - Routine Skin Exam Present: intact, dry, warm - Routine Neurological Exam Present: alert, oriented X3 - Routine Psychiatric Exam Present: normal affect, normal thought process Results 01/28/18 15:01 01/28/18 15:01 Cardiac Enzymes 01/28/18 Range/Units 15:01 AST 20 (14-36) U/L Troponin I 0.014 (0-0.12) ng/ml CBC 01/28/18 Range/Units 15:01 WBC 3.8 L (4.5-11.0) T/MM3 RBC 4.16 (4.00-5.20) M/MM3 Hgb 12.8 (12-16) GM/DL Hct 40.3 (36-46) % Plt Count 112 L (130-400) T/MM3 Neut # (Auto) 1.9 (1.8-7.7) T/MM3 Lymph # (Auto) 1.3 (1-4.8) T/MM3 [place]un # (Auto) 0.4 (0-0.8) T/MM3 Eos # (Auto) 0.1 (0-0.5) T/MM3 Baso # (Auto) 0.1 (0-0.2) T/MM3 Comprehensive Metabolic Panel 01/28/18 Range/Units 15:01 Sodium 142 (136-146) MEQ/L Potassium 3.6 (3.6-5) MEQ/L Chloride 98 (98-107) MEQ/L Carbon Dioxide 30 (22-30) MEQ/L BUN 11.0 (7-17) MG/DL Creatinine 3.8 H (0.7-1.2) mg/dL Glucose 123 H (65-110) MG/DL Calcium 9.6 (8.4-10.2) MG/DL AST 20 (14-36) U/L ALT 9 (1-35) U/L Alkaline Phosphatase 71 (38-126) U/L Total Protein 7.7 (6.3-8.2) g/dL Albumin 4.8 (3.5-5.0) g/dL Intake and Output 01/28/18 01/29/18 01/29/18 22:59 06:59 14:59 Intake Total 360 / 360 158.833 / 158.833 15 Balance 360 / 360 158.833 / 158.833 15 15 Intake: IV 38.833 / 38.833 15 15 DiltiaZEM Drip 125 mg In Ns 125 38.833 / 38.833 15 / 15 ml @ 5 mls/hr IV .Q24H [facility] Rx# :[id number] Oral 360 / 360 120 / 120 Other: # Voids 1 Weight 143 lb 15.39 oz - Imaging and Cardiology Imaging & Cardiology Narrative: Date of Exam: 01/28/18 Ordering Provider: Vivian Awan APRN Type of Exam(s): XR chest 1V Reason for Exam(s): afib Indication: afib PROCEDURE: XR chest 1V: Encounter: Initial Comparison: Chest x-ray dated February 24, [address] angiogram of the aorta dated October 24, 2015 Findings: Lungs are mildly hyperinflated with findings of emphysema. No lobar pneumonia, pleural effusion or pneumothorax. Cardiac silhouette is mildly enlarged, but unchanged. Aneurysmal dilatation of the descending thoracic aorta is noted and is better evaluated on the prior CT angiogram. Pulmonary vascularity is normal. 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 Impression: No focal pneumonia or congestive failure. 01/29/18 10:42 01/30/18 09:32 Date of Exam: 01/28/18 Type of Exam(s): US echo doppler complete DATE OF PROCEDURE 01/28/2018 PROCEDURE PERFORMED 2D echocardiography, M-mode assessment, full color spectral Doppler assessment. FINDINGS 1. LEFT VENTRICLE. Left ventricle appears normal in size. There is mild concentric left ventricular hypertrophy noted. Normal left ventricular systolic function noted. Estimated left ventricular ejection fraction is 50-55% . Due to presence of atrial fibrillation, study is not technically sufficient to allow accurate assessment of diastolic function. 2. RIGHT VENTRICLE. Right ventricle appears normal in size. Normal right ventricular wall thickness noted. Normal right ventricular systolic function noted. 3. RIGHT ATRIUM. Right atrium is mildly enlarged. 4. LEFT ATRIUM. Left atrium is moderately enlarged. 5. INTERATRIAL SEPTUM. Interatrial septum appears intact. No shunt by color flow noted. 6. MITRAL VALVE. There is moderate mitral annular calcification noted predominantly at the posterior annulus. There is no significant mitral stenosis noted. There is moderate central mitral regurgitation noted. 7. AORTIC VALVE. Aortic valve sclerosis is noted. There is moderate calcification of all three leaflets noted. No significant aortic regurgitation noted. No significant aortic stenosis noted. 8. TRICUSPID VALVE. Tricuspid valve appears normal in structure. There is moderate tricuspid regurgitation noted. 9. PULMONIC VALVE. Pulmonic valve poorly visualized on this study. Trivial pulmonic regurgitation noted. 10. EXTRACARDIAC. There is a trivial pericardial effusion noted without any hemodynamic compromise. 11. INFERIOR VENA CAVA. Inferior vena cava is dilated with poor respirophasic variations. 12. PULMONARY ARTERY. Estimated pulmonary artery systolic pressure is 50-55 mmHg. CONCLUSIONS 1. Normal left ventricular systolic function, estimated left ventricular ejection fraction is 55-60%. 2. Normal RV systolic function. 3. Moderate central mitral regurgitation noted. 4. Moderate tricuspid regurgitation noted. 5. Dilated IVC with poor respirophasic variation. 6. Estimated pulmonary artery systolic pressure is 50-55 mmHg. Discharge Plan - Med Rec/Dispo Referrals/Follow Up: Prabhu Tsai MD [Physician] - 02/17/18 ([place] [facility] [place] Instructions: A-fib (Atrial Fibrillation) (DC) Prescriptions: New Carvedilol [Coreg] 37.5 mg PO BIDWM #45 tab Continue Apixaban [Eliquis] 2.5 mg PO BID Sevelamer Carbonate [Renvela] 800 mg PO HS Cholecalciferol (Vitamin D3) [Vitamin D3] 1,000 unit PO DAILY Multivit/Iron/FA/K/Herb No.244 [Alive [employer] Mv Tablet] 1 each PO DAILY irbesartan 75 mg tablet 75 mg PO DAILY 90 Days #90 tab Discontinued Carvedilol [Coreg] 25 mg PO BID - Disposition 01 Discharged Home, Self-Care - Dismissal Complete Discharge Instructions are:: Complete
[2018-01-29 15:28] VITALS: BP 80/46; PULSE 71; RESP 27; O2SAT 97
--- NOTE | 2018-01-29 15:31 | Echocardiogram ---
DATE OF PROCEDURE 01/28/2018 PROCEDURE PERFORMED 2D echocardiography, M-mode assessment, full color spectral Doppler assessment. FINDINGS 1. LEFT VENTRICLE. Left ventricle appears normal in size. There is mild concentric left ventricular hypertrophy noted. Normal left ventricular systolic function noted. Estimated left ventricular ejection fraction is 50-55% . Due to presence of atrial fibrillation, study is not technically sufficient to allow accurate assessment of diastolic function. 2. RIGHT VENTRICLE. Right ventricle appears normal in size. Normal right ventricular wall thickness noted. Normal right ventricular systolic function noted. 3. RIGHT ATRIUM. Right atrium is mildly enlarged. 4. LEFT ATRIUM. Left atrium is moderately enlarged. 5. INTERATRIAL SEPTUM. Interatrial septum appears intact. No shunt by color flow noted. 6. MITRAL VALVE. There is moderate mitral annular calcification noted predominantly at the posterior annulus. There is no significant mitral stenosis noted. There is moderate central mitral regurgitation noted. 7. AORTIC VALVE. Aortic valve sclerosis is noted. There is moderate calcification of all three leaflets noted. No significant aortic regurgitation noted. No significant aortic stenosis noted. 8. TRICUSPID VALVE. Tricuspid valve appears normal in structure. There is moderate tricuspid regurgitation noted. 9. PULMONIC VALVE. Pulmonic valve poorly visualized on this study. Trivial pulmonic regurgitation noted. 10. EXTRACARDIAC. There is a trivial pericardial effusion noted without any hemodynamic compromise. 11. INFERIOR VENA CAVA. Inferior vena cava is dilated with poor respirophasic variations. 12. PULMONARY ARTERY. Estimated pulmonary artery systolic pressure is 50-55 mmHg. CONCLUSIONS 1. Normal left ventricular systolic function, estimated left ventricular ejection fraction is 55-60%. 2. Normal RV systolic function. 3. Moderate central mitral regurgitation noted. 4. Moderate tricuspid regurgitation noted. 5. Dilated IVC with poor respirophasic variation. 6. Estimated pulmonary artery systolic pressure is 50-55 mmHg. MTDD
== END 2018-01-29 12:30 | disposition home or self-care (01) ==
LOC: EDHOLD 14:29 → ED 14:29 → CCU 15:20
PROVIDERS: ADMIT Internal Medicine Interventional Cardiology; ATTEND Internal Medicine Interventional Cardiology